=== PATIENT | male | born 1995 | race African-American/Black ===

== ENCOUNTER 2017-11-01 18:34 | Emergency (ER) | payer SELFPAY ==
[2017-11-01] MEDS ORDERED: ATIVAN INJ 2 MG VIAL IVP ONE (18:44)
[2017-11-01] MEDS ORDERED: NS 500 ML IV 500 ML IV ONE (18:58)
[2017-11-01] MEDS ORDERED: KETALAR IV ONE (19:13)
[2017-11-01] MEDS ORDERED: FENTANYL INJ 250 mcg ONE (19:20)
[2017-11-01] MEDS ORDERED: NORCURON INJ 10 MG VIAL ONE (19:23)
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
[2017-11-01] MEDS ORDERED: NS 1000 ML 2,000 ML ONE (19:28)
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
[2017-11-01] MEDS ORDERED: NORCURON INJ 10 MG VIAL IVP ONE (19:32)
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
[2017-11-01 19:36] VITALS: BP 115/84; BMI 25.8
[2017-11-01 19:36] LABS: ABG PH < 6.800 (7.35-7.45)
[2017-11-01 19:37] LABS: FRACTIONATED INSPIRED OXYGEN 100
[2017-11-01] MEDS ORDERED: ADACEL TDaP IM ONE ×2 (19:40→19:41)
[2017-11-01] MEDS ORDERED: ROCEPHIN 1 GM IV PREMIX 1 GM/50 ML IV.SOLN. IV ONE (19:50)
[2017-11-01] MEDS ORDERED: ROCEPHIN VIAL 1 GM ONE (19:51)
[2017-11-01 20:01] LABS: BASOPHILS # (AUTO) 0.1 X10^3/uL (0.0-0.1); BASOPHILS % (AUTO) 0.7 % (0.2-1.0); EOSINOPHILS # (AUTO) 0.2 x10^3/uL (0.0-0.2); HEMATOCRIT 33.6 % (42.0-54.0); HEMOGLOBIN 10.4 g/dL (13.5-18.0); LYMPHOCYTES # (AUTO) 4.9 X10^3/uL (1.3-2.9); LYMPHOCYTES % (AUTO) 22.7 % (21.0-51.0); MEAN CORPUSCULAR HEMOGLOBIN 30.7 pg (27.0-34.0); MEAN CORPUSCULAR HGB CONC 30.9 g/dL (33.0-35.0); MEAN CORPUSCULAR VOLUME 99.2 fL (80.0-100.0); MEAN PLATELET VOLUME 9.7 fL (7.4-11.0); MONOCYTES % (AUTO) 4.5 % (0.0-13.0); NEUTROPHILS # (AUTO) 15.3 x10^3/uL (2.2-4.8); NEUTROPHILS % (AUTO) 71.1 % (42.0-75.0); PLATELET COUNT 140 X10^3/uL (150.0-450.0); RED BLOOD COUNT 3.39 X10^6/uL (4.7-6.0); RED CELL DISTRIBUTION WIDTH 13.6 % (11.6-16.5); WHITE BLOOD COUNT 21.5 X10^3/uL (3.6-10.0)
[2017-11-01 20:06] LABS: ALBUMIN 2.1 g/dL (3.4-5.0); COR CA(FOR HYPOALB) 9.5 mg/dL (8.5-10.1); CREATININE 1.95 mg/dL (0.70-1.30); TOTAL PROTEIN 4.1 g/dL (6.4-8.2)
[2017-11-01 20:13] LABS: CARBON DIOXIDE 9.4 mmol/L (21-32)
[2017-11-01] MEDS ORDERED: HYDROGEN PEROXIDE 3% ONE (20:19)
[2017-11-01 20:21] LABS: BAND NEUTROPHILS % 8 % (0-10); BASOPHILS % (MANUAL) 1 % (0-1); PLATELET MORPHOLOGY COMMENT NORMAL (NORMAL)
[2017-11-01 20:22] LABS: CRENATED RBC 3+
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
== END 2017-11-01 20:20 | disposition short-term general hospital (02) ==
LOC: ER 18:34
PROC: 30233N1 Transfusion of Nonautologous Red Blood Cells into Peripheral Vein, Percutaneous Approach (ICD-10-PCS; principal; 2017-11-01)
PROC: 02HV33Z Insertion of Infusion Device into Superior Vena Cava, Percutaneous Approach (ICD-10-PCS; principal; 2017-11-01)
PROC: 0BH17EZ Insertion of Endotracheal Airway into Trachea, Via Natural or Artificial Opening (ICD-10-PCS; principal; 2017-11-01)
DX: S71.109A Unspecified open wound, unspecified thigh, initial encounter (principal); W34.00XA Accidental discharge from unspecified firearms or gun, initial encounter; Y92.9 Unspecified place or not applicable
CPT/HCPCS: 36415; 36430; 36556; 36600; 51702; 71010; 72170; 73552; 73560; 80053; 82803; 85025; 86850; 86900; 86901; 86922; 90471; 96365; 96374; 96375; 99283; 99291; A4222; A4618; P9016; J0696; J2060; J3010; J3490

== ENCOUNTER → 2017-12-26 | Outpatient (CLI) | payer SELFPAY ==
[2017-12-26 14:37] LABS: ALBUMIN 3.9 g/dL (3.4-5.0); BLOOD UREA NITROGEN 6 mg/dL (7-18); CALCIUM 10.6 mg/dL (8.5-10.1); CARBON DIOXIDE 29.3 mmol/L (21-32); CHLORIDE 100 mmol/L (98-107); CREATININE 0.78 mg/dL (0.70-1.30); SODIUM 139 mmol/L (136-145); eGFR BLACK RACES > 60 (>60); eGFR NON BLACK RACES > 60 (>60)
== END ==
LOC: LAB 14:02
PROVIDERS: ATTEND Internal Medicine Nephrology
DX: N17.8 Other acute kidney failure (principal)
CPT/HCPCS: 36415; 80069

== ENCOUNTER → 2018-03-12 | Outpatient (CLI) | payer OTHER ==
[2018-03-12 10:14] LABS: BASOPHILS # (AUTO) 0.1 X10^3/uL (0.0-0.1); BASOPHILS % (AUTO) 1.1 % (0.2-1.0); EOSINOPHILS # (AUTO) 0.2 x10^3/uL (0.0-0.2); EOSINOPHILS % (AUTO) 2.7 % (0.9-2.9); HEMATOCRIT 42.9 % (42.0-54.0); HEMOGLOBIN 14.6 g/dL (13.5-18.0); LYMPHOCYTES # (AUTO) 3.9 X10^3/uL (1.3-2.9); LYMPHOCYTES % (AUTO) 46.1 % (21.0-51.0); MEAN CORPUSCULAR HEMOGLOBIN 29.3 pg (27.0-34.0); MEAN CORPUSCULAR HGB CONC 34.1 g/dL (33.0-35.0); MEAN CORPUSCULAR VOLUME 85.8 fL (80.0-100.0); MEAN PLATELET VOLUME 8.9 fL (7.4-11.0); MONOCYTES # (AUTO) 0.8 x10^3/uL (0.3-0.8); NEUTROPHILS # (AUTO) 3.4 x10^3/uL (2.2-4.8); NEUTROPHILS % (AUTO) 40.1 % (42.0-75.0); PLATELET COUNT 262 X10^3/uL (150.0-450.0); RED CELL DISTRIBUTION WIDTH 13.6 % (11.6-16.5); WHITE BLOOD COUNT 8.4 X10^3/uL (3.6-10.0)
== END ==
LOC: LAB 09:45
PROVIDERS: ATTEND Internal Medicine
DX: Z02.71 Encounter for disability determination (principal)
CPT/HCPCS: 36415; 82565; 85025

== ENCOUNTER → 2018-04-10 | Outpatient (CLI) | payer MEDICAID ==
[2018-04-10 14:59] LABS: BLOOD UREA NITROGEN 12 mg/dL (7-18); CALCIUM 9.3 mg/dL (8.5-10.1); CARBON DIOXIDE 29.6 mmol/L (21-32); CHLORIDE 104 mmol/L (98-107); CREATININE 0.93 mg/dL (0.70-1.30); PHOSPHORUS 2.7 mg/dL (2.6-4.7); SODIUM 140 mmol/L (136-145); eGFR BLACK RACES > 60 (>60); eGFR NON BLACK RACES > 60 (>60)
[2018-04-10 15:00] LABS: CREATININE,URINE 153.12 mg/dL (40-278); TOTAL PROTEIN,URINE 19.7 mg/dl (0-11.9)
== END ==
LOC: LAB 13:57
PROVIDERS: ATTEND Internal Medicine Nephrology
DX: N17.0 Acute kidney failure with tubular necrosis (principal)
CPT/HCPCS: 36415; 80069; 82570; 84157